=== PATIENT | female | born 1985 | race American Indian/Alaskan Native ===

== ENCOUNTER 2017-02-27 23:50 | Emergency (ER) | payer MEDICAID ==
[2017-02-28 01:28] LABS: Basophils % (Auto) 0.1 % (0.0-1.8); Eosinophils % (Auto) 1.5 % (0.0-4.3); Hemoglobin 11.2 gm/dl (10.1-14.3); Mean Corpuscular HGB Conc 33 % (30-34); Mean Corpuscular Hemoglobin 29 pg (28-32); Mean Corpuscular Volume 89 fl (79-97); Platelet Count 196 K/mm3 (140-440); Red Blood Count 3.83 M/mm3 (3.65-5.03); Red Cell Distribution Width 15.3 % (13.2-15.2); White Blood Count 9.2 K/mm3 (4.5-11.0)
[2017-02-28 03:09] LABS: Bilirubin,Urine NEG (Negative); Blood,Urine LG (Negative); Ketones,Urine NEG (Negative); Leukocyte Esterase,Urine SM (Negative); Mucus,Urine 1+ /HPF; Nitrite,Urine NEG (Negative); Protein,Urine <15 mg/dL mg/dL (Negative)
--- NOTE | 2017-02-28 03:26 | Ultrasound Report ---
FINAL REPORT PROCEDURE: US OB \T\gt; = 14 WEEKS FETUS TECHNIQUE: Real-time limited sonographic examination was performed for evaluation of size, position, heartbeat, fluid volume for each fetus with image documentation (1 or more fetuses). CPT 39048 HISTORY: vaginal bleeding COMPARISON: No prior studies are available for comparison. FINDINGS: MATERNAL Uterus: Within normal limits . Cervix length: 3.2 cm. Internal Os: Closed . FETUS IUP: Single living intrauterine . Position: Transverse right. Placental position: Anterior, Without previa . Amniotic fluid volume: Normal . Heart rate and rhythm: 143 BPM, Regular . anatomic survey: Normal. Limited evaluation of the cerebellum, cisterna magna, heart spine due to position. MEASUREMENTS BPD: 3.42 centimeters corresponding to 16 weeks and 4 days.. HC: 13.63 centimeters correspond is 17 weeks and 1 day. AC: 11.65 centimeters corresponding to 17 weeks 3 days. FL: 2.47 centimeters correspond is 17 weeks 3 days. Mean Gestational Age (composite criteria): 17 weeks and 1 day. Ratio biometry: Normal . Estimated Weight: 192 grams. Interval growth: Appropriate . Estimated Due Date (earliest scan): 08/07/2017. IMPRESSION: 1. Single living intrauterine gestation at approximately 17 weeks and 1 day. 2. EDC by US 08/07/2017.
[2017-02-28 04:34] VITALS: BP 113/72
== END 2017-02-28 05:05 | disposition left against medical advice (07) ==
LOC: ED 23:50
DX: O20.9 Hemorrhage in early pregnancy, unspecified (principal); Z3A.17 17 weeks gestation of pregnancy; Z53.21 Procedure and treatment not carried out due to patient leaving prior to being seen by health care provider
CPT/HCPCS: 36415; 76805; 81001; 81025; 84702; 85025; 86850; 86900; 86901